=== PATIENT | male | born 1985 | race Caucasian/White ===

== ENCOUNTER 2016-07-24 13:27 | Day surgery (SDC) | payer OTHER ==
[~2016-07-24] VITALS: Ht 185.4 cm; Wt 65.4 kg
[~2016-07-24 13:27] MED LIST: NO HOME MEDS; PRED20TA PO; TRAM50TA2 PO
[2016-07-24 14:50] VITALS: Ht 185.4 cm; Wt 65.4 kg
[2016-07-24] MEDS ORDERED: PROPOFOL 40 ML ONE (15:10)
[2016-07-24] MEDS ORDERED: MIDAZOLAM 1 MG/ML 2 ML INJ ONE (15:10)
[2016-07-24 15:14] VITALS: BP 116/66; PULSE 73; RESP 20
[2016-07-24 16:09] VITALS: BP 103/70; PULSE 61; RESP 18
--- NOTE | 2016-07-25 01:01 | GILP ---
DATE OF PROCEDURE: NAME OF PROCEDURE: Colonoscopy with multiple biopsies. SURGEON: Selina Varma MD HISTORY AND INDICATIONS: The patient is being evaluated for abdominal pain; history of colitis, pos sible exacerbation. PREMEDICATION: Monitored anesthesia care by anesthesiologist. INSTRUMENT USED: Olympus colonoscope. TECHNIQUE: After informed consent, with the patient/relatives understanding the procedure, its indic ations potential risks and complications, including but not limited to: allergic reaction, bleeding, perforation, infection, missed lesions and after all pertinent questions were answered to the patie nt's satisfaction, the patient/relatives signed the witnessed informed consent. Following this, premedication was administered slowly IV push by under careful cardiovascular and re spiratory monitoring with pulse oximetry, automatic blood pressure and eyewear manufacturing supervisor. Once the sedativ e effect was achieved, the patient was placed in the left lateral decubitus position, digital rectal examination was performed. The colonoscope was then introduced and advanced under visual control th roughout all segments of the colon including: the rectum, sigmoid, descending colon, splenic flexure , transverse colon, hepatic flexure, ascending colon and finally reaching the cecum which was clearl y identified by transillumination, finger indentation and the ileocecal valve. Careful examination o f the mucosa of the lower gastrointestinal tract both on insertion as well as withdrawal of the inst rument disclosed the following findings: Rectal Examination: Small external hemorrhoids present. Colonic Mucosa: The colonic mucosa is mildly congested and erythematous in the rectum, rectosigmoid and distal descending colon. The process essentially improves beyond this point, and the right oz e of the colon appears unremarkable. The ileocecal valve was clearly identified. Terminal ileum wa s briefly examined, appears unremarkable as well. The instrument was withdrawn, re-examining the mu cosa in detail. Biopsies were obtained from the ascending, transverse, descending, sigmoid and rect al areas. Small internal hemorrhoids are present. The instrument was then withdrawn. The patient tolerated the procedure well and was transferred out of the Endoscopy Suite awake and in good condition to continue recovery under observation. IMPRESSION: 1. Mildly active left-sided ulcerative colitis, right colon endoscopically normal. 2. Small internal hemorrhoids. PLAN: Will continue Apriso. Pathology will be reviewed as soon as available. Further recommendati on will depend on the patient's clinical course as well as review of biopsies. Dictated By: SELINA VARMA MS/NTS Conf#: [id number] DID#: [id number]
== END 2016-07-24 16:32 | disposition home or self-care (01) ==
LOC: GIL 13:27
PROVIDERS: ATTEND Internal Medicine Gastroenterology
DX: K51.90 Ulcerative colitis, unspecified, without complications (principal); K64.8 Other hemorrhoids
CPT/HCPCS: 45380; 88305; J2250; Z7610

== ENCOUNTER 2018-08-08 11:30 | Inpatient (IN) | payer OTHER ==
[~2018-08-08] VITALS: Ht 185.4 cm; Wt 69.1 kg
[2018-08-08] MEDS ORDERED: SODIUM CHLORIDE 0.9% 1L BAG IV* STA (14:55)
[2018-08-08] MEDS ORDERED: morphine 4 MG/ML VIAL IV STA (14:55)
[2018-08-08] MEDS ORDERED: ONDANSETRON 4 MG INJ IV STA (14:55)
[2018-08-08] MEDS ORDERED: ACETAMINOPHEN 500 MG TAB PO STA (15:15)
[2018-08-08] MEDS ORDERED: metroNIDAZOLE 500 MG/NS (PMX) 100 ML IVPB STA (16:32)
--- NOTE | 2018-08-08 16:45 | ERD ---
ER Documentation Chief Complaint Chief Complaint back pain x3wk; UC flareup 'losing a lot of blood' HPI Patient is a 33-year-old male with a history of ulcerative colitis, who presents to the ER for concerns of worsening rectal bleeding times 3 months. Patient states initially he was having 1-2 episodes of bloody stools per day. He states that over the last few days his bloody stools have become more frequent. Patient reports having bright blood with occasional blood clot passage. Patient states he did try to call his GI doctor however he was advised to come to the ER. GI doctor is Dr. Dariela Spicer. Patient also reports lower abdominal pain. He describes his pain to be crampy and spasm-like. Patient denies any fevers at home. Patient denies any vomiting. Patient states he does take mesalamine daily. Patient also states his been having left lower back pain. Patient denies any falls or trauma. He denies any saddle anesthesia, urine incontinence or stool incontinence. Patient states he feels as if his left lower back is "spasming". Patient is able to ablate however he states it is difficult. Patient reports taking ibuprofen 800 mg 3 times per day. Patient is brought in by his . ROS All systems reviewed and are negative except as per history of present illness. Medications Home Meds Active Scripts Tramadol HCl (Tramadol HCl) 50 Mg Tablet, 50 MG PO Q4 PRN for PAIN, #20 TAB Prov:LES OSORIO 05/20/16 Prednisone* (Prednisone*) 20 Mg Tab, 40 MG PO DAILY for 5 Days, TAB Prov:LES OSORIO 05/20/16 Reported Medications [No Home Meds] No Conflict Check 01/13/15 Allergies Allergies: Coded Allergies: No Known Allergy (Unverified , 05/20/16) PMhx/Soc History of Surgery: No Anesthesia Reaction: No Hx Neurological Disorder: No Hx Respiratory Disorders: No Hx Cardiac Disorders: No Hx Psychiatric Problems: No Hx Miscellaneous Medical Probl: Yes (ULCERATIVE COLITIS) Hx Alcohol Use: No Hx Substance Use: No Hx Tobacco Use: No FmHx Family History: No diabetes Physical Exam Vitals Vital Signs Date Temp Pulse Resp B/P (MAP) Pulse Ox O2 O2 Flow FiO2 Time Delivery Rate 08/08/18 100.6 15:42 08/08/18 100.6 97 16 132/59 97 13:01 (83) Physical Exam GENERAL: Well-developed, well-nourished male. Appears uncomfortable secondary to pain. HEAD: Normocephalic, atraumatic. EYES: Pupils are equally reactive bilaterally. EOMs grossly intact. No conjunctival erythema. ENT: Moist mucous membranes. No uvula deviation. No kissing tonsils. NECK: Supple. No meningismus. Normal range of motion of the neck. LUNG: Clear to auscultation bilaterally. No rhonchi, wheezing, rales or coarse breath sounds. HEART: Regular rate and rhythm. No murmurs, rubs or gallops. ABDOMEN: Soft,and nondistended. Mildly tender to palpation in bilateral lower quadrants. Positive bowel sounds in all four quadrants. No rebound tenderness, no guarding. (-) McBurney's point tenderness. No CVA tenderness. BACK: No midline tenderness. Left lower paraspinal muscles are tender to palpation. EXTREMITIES: Equal pulses bilaterally. No peripheral clubbing, cyanosis or edema. No unilateral leg swelling. NEUROLOGIC: Alert and oriented. Moving all four extremities without any difficulty. Normal speech. Steady gait. SKIN: Normal color. Warm and dry. No rashes or lesions. Result Diagram: 08/08/18 1512 08/08/18 1512 Results 24 hrs Laboratory Tests Test 08/08/18 15:12 White Blood Count 10.5 10^3/ul Red Blood Count 4.81 10^6/ul Hemoglobin 13.1 g/dl Hematocrit 40.3 % Mean Corpuscular Volume 83.8 fl Mean Corpuscular Hemoglobin 27.2 pg Mean Corpuscular Hemoglobin Concent 32.5 g/dl Red Cell Distribution Width 12.3 % Platelet Count 445 10^3/UL Mean Platelet Volume 9.9 fl Immature Granulocytes % 0.600 % Neutrophils % 79.2 % Lymphocytes % 11.6 % Monocytes % 8.1 % Eosinophils % 0.2 % Basophils % 0.3 % Nucleated Red Blood Cells % 0.0 /100WBC Immature Granulocytes # 0.060 10^3/ul Neutrophils # 8.3 10^3/ul Lymphocytes # 1.2 10^3/ul Monocytes # 0.9 10^3/ul Eosinophils # 0.0 10^3/ul Basophils # 0.0 10^3/ul Nucleated Red Blood Cells # 0.0 10^3/ul Sodium Level 141 mmol/L Potassium Level 3.9 mmol/L Chloride Level 101 mmol/L Carbon Dioxide Level 27 mmol/L Anion Gap 13 Blood Urea Nitrogen 8 mg/dl Creatinine 0.82 mg/dl Est Glomerular Filtrat Rate mL/min > 60 mL/min Glucose Level 98 mg/dl POC Venous Lactate 2.0 mmol/L Calcium Level 9.1 mg/dl Total Bilirubin 0.2 mg/dl Direct Bilirubin 0.00 mg/dl Indirect Bilirubin 0.2 mg/dl Aspartate Amino Transf (AST/SGOT) 18 IU/L Alanine Aminotransferase (ALT/SGPT) 39 IU/L Alkaline Phosphatase 137 IU/L Troponin I < 0.012 ng/ml Total Protein 6.6 g/dl Albumin 3.7 g/dl Globulin 2.90 g/dl Albumin/Globulin Ratio 1.27 Lipase 562 U/L Current Medications Medications Dose Sig/Abril Start Time Status Last (Trade) Ordered Route PRN Stop Time Admin Dose Reason Admin Sodium 2,050 ml BOLUS OVER 2 08/08/18 DC 08/08/18 Chloride HOURS STAT 14:55 15:17 (NS) IV* 08/08/18 15:01 Ondansetron 4 mg ONCE STAT 08/08/18 DC 08/08/18 HCl (Zofran IV 14:55 15:17 Inj) 08/08/18 15:01 Morphine 4 mg ONCE STAT 08/08/18 DC 08/08/18 Sulfate IV 14:55 15:17 (morphine) 08/08/18 15:01 1,000 mg ONCE STAT 08/08/18 DC 08/08/18 Acetaminophen PO 15:15 15:42 (Tylenol 08/08/18 15:16 Tab) 100 ml @ ONCE STAT 08/08/18 DC 08/08/18 Metronidazole 100 mls/hr IVPB 16:32 18:06 08/08/18 17:31 200 ml @ ONCE ONCE 08/08/18 DC 08/08/18 Ciprofloxacin 200 mls/hr IVPB 17:00 17:05 / Dextrose 08/08/18 17:59 125 mg ONCE ONCE 08/08/18 DC 08/08/18 Methylprednis IV 19:00 18:49 olone Sodium 08/08/18 19:01 Succinate (Solu-Medrol) Ondansetron 4 mg BRIDGE ORDER 08/08/18 HCl (Zofran PRN IV 19:00 Inj) NAUSEA/VOMITI 08/09/18 18:59 NG 650 mg ER BRIDGE 08/08/18 Acetaminophen PRN PO 19:00 (Tylenol .MILD PAIN 08/09/18 18:59 Tab) 1-3 OR TEMP Procedures/MDM ED COURSE: The patient was stable throughout ED course. I kept the patient and/or family informed of laboratory and diagnostic imaging results throughout the ED course. DIAGNOSTIC IMAGING: Read by radiologist. Patient: KENNEY HENSON : 1985 Age: 33 Sex: M MR #: [id number] DOS: 08/08/18 1455 Ordering MD: GAGANDEEP LOFTON PA-C Location: [facility] Room/Bed: PROCEDURE: CT ABDOMEN AND PELVIS WITHOUT CONTRAST. CLINICAL INDICATION: Abdominal pain and bloody stool TECHNIQUE: CT scan of the abdomen and pelvis without contrast was performed on a multidetector high-resolution CT scanner. The patient was scanned without intravenous contrast. Coronal and sagittal reformatted images were obtained from the axial source images. Images were reviewed on a high-resolution PACS workstation. The total exam CTDI equals 6.7 mGy and the total exam DLP equals 401 mGy-cm. One or more of the following dose reduction techniques were used: Automated exposure control. Adjustment of the mA and/or kV according to patient size. Use of iterative reconstruction technique. DICOM images are available COMPARISON: CT 05/20/2016 FINDINGS: CT abdomen: The lung bases are clear. The heart size is within normal limits. There is no significant pericardial effusion. Hepatic morphology is within normal limits. No gross contour deforming masses. The gallbladder is within normal limits. No evidence of intrahepatic or extrahepatic biliary dilatation. The spleen and pancreas are within normal limits. Both adrenal glands are within normal limits. Both kidneys are in normal anatomic position. No evidence of obstruction or hydronephrosis. No gross renal/ureteric calculi. The visualized GI tract demonstrate normal caliber loops of small large bowel. No obstruction. Stool filled loops of large bowel suggestive of constipation. The unenhanced aorta is unremarkable. No significant retroperitoneal lymphadenopathy. CT pelvis: Bladder is distended. Prostate is normal size. Rectosigmoid colon demonstrates thickening of the melgar with mild adjacent inflammatory changes. Several perirectal lymph nodes as well as perirectal fatty stranding is noted. The visualized osseous structures, appears to be within normal limits. IMPRESSION: 1. THICKENING OF THE MELGAR OF THE RECTOSIGMOID COLON WITH PERIRECTAL FATTY STRANDING AND SEVERAL PERIRECTAL LYMPH NODES. FINDINGS MAY BE SEQUELA OF FOCAL INFECTIOUS VERSUS INFLAMMATORY COLITIS/PROCTITIS. UNDERLYING MALIGNANCY IS LESS LIKELY GIVEN CLINICAL AGE BUT NOT EXCLUDED. WOULD RECOMMEND FOLLOW-UP COLONOSCOPY. 2. No evidence of bowel obstruction. Stool filled loops of large bowel s uggestive of constipation. 3. No evidence of free fluid or free air. No gross focal fluid collections. RPTAT: AAPP Physician Kumar Date Time Electronically viewed and signed by Physician Kumar on 08/08/2018 15:57 JL/ CC: GAGANDEEP LOFTON PA-C [id number] PROCEDURES: None. MEDICATIONS GIVEN: IV fluids, Zofran, morphine Patient tolerated medication well with no adverse reactions. MEDICAL DECISION MAKING: Patient is a 33-year-old male with a past medical history of ulcerative colitis who presents the ER for concerns of worsening rectal bleeding times 3 months.. Vital signs were reviewed. Patient was febrile at initial presentation with a temperature of 100.6 Fahrenheit. Patient's notable pulse was 97 bpm. On exam, patient did appear uncomfortable. Patient noted mild diffuse lower abdominal pain and left-sided lower back pain. IV line was established. Blood work was obtained. CBC showed no elevated WBC count. Hemoglobin was noted to be 13.1, hematocrit of 40.3. Platelet count was noted to be 445. CMP showed no evidence of electrolyte abnormalities, severe acidosis, alkalosis, renal failure, or liver disease. Lipase showed no evidence of acute pancreatitis lipase was noted to be elevated at 562 however no evidence of acute pancreatitis at this time. UA is pending normal. Initial POC lactate was noted to be 2.0. Additional lactic acids are pending. Patient was given 30 cc/kg gram of IV fluids. Blood cultures were obtained and are pending. CT abdomen pelvis showed: 1. THICKENING OF THE MELGAR OF THE RECTOSIGMOID COLON WITH PERIRECTAL FATTY STRANDING AND SEVERAL PERIRECTAL LYMPH NODES. FINDINGS MAY BE SEQUELA OF FOCAL INFECTIOUS VERSUS INFLAMMATORY COLITIS/PROCTITIS. UNDERLYING MALIGNANCY IS LESS LIKELY GIVEN CLINICAL AGE BUT NOT EXCLUDED. WOULD RECOMMEND FOLLOW-UP COLONOSCOPY. 2. No evidence of bowel obstruction. Stool filled loops of large bowel suggestive of constipation. 3. No evidence of free fluid or free air. No gross focal fluid collections. Upon reexamination, patient did report some mild improvement in pain after receiving morphine. Case was discussed with supervising physician Dr. Coe. Patient will be transferred to ED 1 for further management workup of symptoms. Attending addendum: MEDICAL DECISION MAKING Patient was initially seen by the PA. Care was transferred to in after workup was done. My independent concise history is patient has been having abdominal pain with diarrhea and rectal bleeding. He denies any fevers or chills or nausea or vomiting. He does not have follow-up with his GI physician until next month. No associated chest pain or shortness of breath. My pertinent physical exam findings are lower abdominal tenderness with no rebound or guarding. The plan is to admit the patient for IV hydration, antibiotics as he does have a low-grade fever and I cannot rule out infection, as well as IV steroids. He will need GI consultation. Accepting Care Team: Current data and ongoing care discussed. Time: Time of admission Primary Provider: Dr. Kiser Departure Diagnosis: Primary Impression: Ulcerative colitis with rectal bleeding Ulcerative colitis location: unspecified ulcerative colitis location Qualified Codes: K51.911 - Ulcerative colitis, unspecified with rectal bleeding Additional Impressions: Lower back pain Chronicity: unspecified Back pain laterality: unspecified Sciatica presence: unspecified whether sciatica present Qualified Codes: M54.5 - Low back pain Fever Fever type: unspecified Qualified Codes: R50.9 - Fever, unspecified Condition: GAGANDEEP Leahy PA-C Aug 08, 2018 16:44 ROSHNI COE MD Aug 08, 2018 19:16
[2018-08-08] MEDS ORDERED: CIPROFLOXACIN 400MG/D5W 200 ML IVPB ONE (17:00)
[2018-08-08] MEDS ORDERED: ONDANSETRON 4 MG INJ IV PRN ×2 (19:00→22:00)
[2018-08-08] MEDS ORDERED: METHYLPREDNISOLONE 125 MG INJ IV ONE (19:00)
[2018-08-08] MEDS ORDERED: ACETAMINOPHEN 325 MG TAB PO PRN ×2 (19:00→22:00)
[2018-08-08 20:05] VITALS: BP 116/58; PULSE 80; RESP 17
[2018-08-08 21:00] VITALS: Ht 185.4 cm; Wt 69.1 kg
[2018-08-08] MEDS ORDERED: D5W-0.45 NACL + KCL 20 MEQ 0 ML IV ONE (21:40)
[2018-08-08] MEDS ORDERED: morphine 2 MG INJ IV PRN (22:00)
[2018-08-08] MEDS: D5-NS + KCL 20 MEQ 1,000 ML IV SCH (23:02)
[2018-08-08] MEDS: METHYLPREDNISOLONE 40 MG INJ IV SCH (23:03)
[2018-08-09] MEDS: PIPER-TAZO 3.375 GM IV (PMX) 100 ML IVPB SCH ×5 (00:15→23:15)
[2018-08-09] MEDS: METHYLPREDNISOLONE 40 MG INJ IV SCH ×3 (05:43→21:03)
[2018-08-09 08:53] VITALS: BP 109/61; PULSE 83; RESP 18
[2018-08-09] MEDS: D5-NS + KCL 20 MEQ 1,000 ML IV SCH (12:28)
[2018-08-09 15:23] VITALS: BP 100/55; PULSE 87; RESP 18
--- NOTE | 2018-08-09 17:34 | CONS ---
Assessment/Plan Assessment/Plan Assessment/Plan (Daily) Assessment: Ulcerative colitis flare Bloody diarrhea No abdominal pain Last colonoscopy 08/04 -mild left-sided colitis Patient is on a Apriso x 4 pills a day at home Lower back pain Plan: Continue Solu-Medrol 40 mg 4 times daily We will switch Solu-Medrol to p.o. prednisone tomorrow Check stool for C. difficile Start Pentasa 1000 mg 4 times daily Continue antibiotics Colonoscopy as an outpatient depending on the clinical course Patient seen in collaboration with Dr. Varma Consultation Date/Type/Reason Admit Date/Time Aug 08, 2018 at 18:43 Date of Consultation: Aug 09, 2018 Type of Consult GI Reason for Consultation Ulcerative colitis flare Date/Time of Note DATE: 08/09/18 TIME: 17:25 Hx of Present Illness This is a 33-year-old male with history of ulcerative colitis and for back pain and ulcerative colitis flare. Patient was initially diagnosed 3 years ago with colonoscopy and started on Apriso and short course of steroids. Patient had repeat colonoscopy in 2016 with findings of mildly active left-sided colitis, normal right colon. This is the patient's first flare since diagnosis. Patient reports having 4-10 bowel movements of bloody diarrhea per day for the past 3 months. Denies abdominal pain. Normally patient has 1-2 bowel movements per day. Abdominal CT shows thickening of rectosigmoid colon, fat stranding and lymphadenopathy. Patient is complaining of bloating. Currently denies nausea, vomiting, hematemesis, constipation or fever. He was seen by budget counselor and recommended paleo diet. Patient was started on antibiotics and Solu-Medrol 40 mg q. 8. Will add Pentasa 1000 mg 4 times daily. Check stool for C. difficile. Patient is tolerating diet well. Back pain is improving. Will plan to switch Solu-Medrol to oral prednisone tomorrow. Colonoscopy as an outpatient depending on the clinical course. Gastrointestinal: no complaints (See HPI) Past Medical History Medical History: no pertinent history Home Meds Active Scripts Tramadol HCl (Tramadol HCl) 50 Mg Tablet, 50 MG PO Q4 PRN for PAIN, #20 TAB Prov:LES OSORIO 05/20/16 Prednisone* (Prednisone*) 20 Mg Tab, 40 MG PO DAILY for 5 Days, TAB Prov:LES OSORIO 05/20/16 Reported Medications [No Home Meds] No Conflict Check 01/13/15 Medications Current Medications Ondansetron HCl (Zofran Inj) 4 mg BRIDGE ORDER PRN IV NAUSEA/VOMITING; Start 08/08/18 at 19:00; Stop 08/09/18 at 18:59 Acetaminophen (Tylenol Tab) 650 mg ER BRIDGE PRN PO .MILD PAIN 1-3 OR TEMP; Start 08/08/18 at 19:00; Stop 08/09/18 at 18:59 Piperacillin Sod/ Tazobactam Sod 100 ml @ 200 mls/hr Q6 IVPB Last administered on 08/09/18at 12:28; Admin Dose 200 MLS/HR; Start 08/09/18 at 00:00 Potassium Chloride/Dextrose/ Sod Cl 1,000 ml @ 75 mls/hr [id number] IV Last administered on 08/09/18at 12:28; Admin Dose 75 MLS/HR; Start 08/08/18 at 22:00 Ondansetron HCl (Zofran Inj) 4 mg Q6H PRN IV NAUSEA AND/OR VOMITING; Start 08/08/18 at 22:00 Acetaminophen (Tylenol Tab) 650 mg Q4H PRN PO MILD PAIN(1-3)OR ELEVATED TEMP; Start 08/08/18 at 22:00 Morphine Sulfate (morphine) 2 mg Q4H PRN IV SEVERE PAIN LEVEL 7-10; Start 08/08/18 at 22:00 Methylprednisolone Sodium Succinate (Solu-Medrol) 40 mg Q8 IV Last administered on 08/09/18at 14:46; Admin Dose 40 MG; Start 08/08/18 at 22:00 Influenza Virus Vaccine Quadrival (Fluzone) 0.5 ml ONCE ONCE IM* ; Start 08/10/18 at 10:00; Stop 08/10/18 at 10:01 Allergies: Coded Allergies: No Known Allergy (Unverified , 05/20/16) Past Surgical History Past Surgical Hx: no surgical history Social History Alcohol Use: none Smoking Status: Never smoker Drug Use: none Exam/Review of Systems Exam Vitals Vital Signs Date Temp Pulse Resp B/P (MAP) Pulse Ox O2 O2 Flow FiO2 Time Delivery Rate 08/09/18 98.1 87 18 100/55 97 15:23 (70) 08/08/18 Room Air 19:58 Intake and Output 08/08/18 08/08/18 08/09/18 1515:00 23:00 07:00 IntakeIntake Total 2250 ml BalanceBalance 2250 ml Exam PHYSICAL EXAMINATION: GENERAL: Well developed, well nourished, alert & oriented x 3, in no acute distress SKIN: No lesions, no stigmata chronic liver disease, no evidence of bleeding diathesis LYMPHATIC: No palpable lymphadenopathy. HEAD: Normocephalic, atraumatic, no tenderness. EYES: Pupils equal reactive to light and accommodation, full extraocular movements, sclera clear, non-icteric, no discharge. EARS/NOSE AND THROAT: Ears normal, nose normal, oropharynx normal, oral membranes well hydrated without lesions. NECK: Supple, no masses, thyroid normal, JVP within normal limits, carotids normal without bruits. CHEST: Inspection within normal limits. CARDIOVASCULAR: Heart: Regular rate and rhythm, no murmurs, gallops or rubs. Peripheral pulses present within normal limits, no cyanosis, clubbing or edemas. No pulsatile abdominal mass RESPIRATORY: Lungs clear to auscultation and percussion, no wheezing, no rubs GASTROINTESTINAL AND LIVER: Abdomen: Soft, non tenderness, non-distended, no hernias, no masses, no organomegaly, no ascites, no guarding, no rebound tenderness, normoactive bowel sounds. Rectal: Deferred. GENITOURINARY: [Male genitalia within normal limits. EXTREMITIES: No cyanosis, clubbing or edema. Results Result Diagram: 08/09/184 08/09/184 Results 24hrs Laboratory Tests Test 08/08/18 22:16 08/09/18 04:44 08/09/18 07:42 Lactic Acid Level 0.9 White Blood Count 6.0 # Red Blood Count 4.50 L Hemoglobin 12.3 L Hematocrit 38.0 L Mean Corpuscular Volume 84.4 Mean Corpuscular Hemoglobin 27.3 L Mean Corpuscular Hemoglobin Concent 32.4 Red Cell Distribution Width 12.1 Platelet Count 380 Mean Platelet Volume 10.4 Immature Granulocytes % 0.700 H Neutrophils % 89.0 H Lymphocytes % 9.3 L Monocytes % 1.0 Eosinophils % 0.0 Basophils % 0.0 Nucleated Red Blood Cells % 0.0 Immature Granulocytes # 0.040 H Neutrophils # 5.4 Lymphocytes # 0.6 L Monocytes # 0.1 L Eosinophils # 0.0 Basophils # 0.0 Nucleated Red Blood Cells # 0.0 Sodium Level 139 Potassium Level 4.4 Chloride Level 106 Carbon Dioxide Level 28 Anion Gap 5 # Blood Urea Nitrogen 8 Creatinine 0.73 Est Glomerular Filtrat Rate mL/min > 60 Glucose Level 147 # Calcium Level 8.9 Bedside Glucose 129 Medications Medication Current Medications Ondansetron HCl (Zofran Inj) 4 mg BRIDGE ORDER PRN IV NAUSEA/VOMITING; Start at 19:00; Stop 08/09/18 at 18:59 Acetaminophen (Tylenol Tab) 650 mg ER BRIDGE PRN PO .MILD PAIN 1-3 OR TEMP; Start 08/08/18 at 19:00; Stop 08/09/18 at 18:59 Piperacillin Sod/ Tazobactam Sod 100 ml @ 200 mls/hr Q6 IVPB Last administered on 08/09/18at 12:28; Admin Dose 200 MLS/HR; Start 08/09/18 at 00:00 Potassium Chloride/Dextrose/ Sod Cl 1,000 ml @ 75 mls/hr [id number] IV Last administered on 08/09/18at 12:28; Admin Dose 75 MLS/HR; Start 08/08/18 at 22:00 Ondansetron HCl (Zofran Inj) 4 mg Q6H PRN IV NAUSEA AND/OR VOMITING; Start 08/08/18 at 22:00 Acetaminophen (Tylenol Tab) 650 mg Q4H PRN PO MILD PAIN(1-3)OR ELEVATED TEMP; Start 08/08/18 at 22:00 Morphine Sulfate (morphine) 2 mg Q4H PRN IV SEVERE PAIN LEVEL 7-10; Start 08/08/18 at 22:00 Methylprednisolone Sodium Succinate (Solu-Medrol) 40 mg Q8 IV Last administered on 08/09/18at 14:46; Admin Dose 40 MG; Start 08/08/18 at 22:00 Influenza Virus Vaccine Quadrival (Fluzone) 0.5 ml ONCE ONCE IM* ; Start 08/10/18 at 10:00; Stop 08/10/18 at 10:01 KEVIN BARAKAT NP Aug 09, 2018 17:34
[2018-08-09] MEDS: MESALAMINE (SR) 250 MG CAP PO SCH ×2 (18:53→21:03)
[2018-08-09 20:00] VITALS: BP 105/56; PULSE 80; RESP 18
[2018-08-10 02:00] VITALS: BP 92/48; PULSE 83; RESP 17
[2018-08-10 04:11] VITALS: BP 111/58; PULSE 75
[2018-08-10] MEDS: METHYLPREDNISOLONE 40 MG INJ IV SCH (05:41)
[2018-08-10] MEDS: D5-NS + KCL 20 MEQ 1,000 ML IV SCH ×2 (05:41→13:37)
[2018-08-10] MEDS: PIPER-TAZO 3.375 GM IV (PMX) 100 ML IVPB SCH ×3 (05:41→17:28)
[2018-08-10 08:00] VITALS: BP 107/57; PULSE 73; RESP 18
[2018-08-10] MEDS: MESALAMINE (SR) 250 MG CAP PO SCH ×3 (09:21→17:28)
--- NOTE | 2018-08-10 10:18 | PN ---
Date/Time of Note Date/Time of Note DATE: 08/10/18 TIME: 10:03 Assessment/Plan VTE Prophylaxis Risk score (from Ns)>0 risk: 0 SCD applied (from Ns): Yes Pharmacological prophylaxis: NA/contraindicated Pharm contraindication: bleeding Lines/Catheters IV Catheter Type (from [facility] Peripheral IV Urinary Cath still in place: No Assessment/Plan Assessment/Plan Assessment: Ulcerative colitis flare Bloody diarrhea No abdominal pain Last colonoscopy 08/04 -mild left-sided colitis Patient is on a Apriso x 4 pills a day at home Lower back pain Plan: Protonix daily while on prednisone We will switch Solu-Medrol to p.o. prednisone 30 mg p.o. twice daily - taper by 5 mg every 3 days Stool for C. difficile -pending Pentasa 1000 mg 4 times daily -once discharged can continue on Apriso F/u as an OP Colonoscopy as an outpatient depending on the clinical course Patient seen in collaboration with Dr. Varma Subjective: Patient is doing well. Diarrhea improved. Patient reports 5 bowel movements yesterday and one bowel movement today. Patient reports minimal amount of blood in stool. Denies abdominal pain. Tolerates diet well. Stool for C. difficile is still pending. We will switch Solu-Medrol to prednisone 30 mg twice daily. Taper prednisone by 5 mg every 3 days. Continue on Apriso. Follow-up as an outpatient. PHYSICAL EXAMINATION: GENERAL: Well developed, well nourished, alert & oriented x 3, in no acute distress SKIN: No lesions, no stigmata chronic liver disease, no evidence of bleeding diathesis LYMPHATIC: No palpable lymphadenopathy. HEAD: Normocephalic, atraumatic, no tenderness. EYES: Pupils equal reactive to light and accommodation, full extraocular movements, sclera clear, non-icteric, no discharge. EARS/NOSE AND THROAT: Ears normal, nose normal, oropharynx normal, oral membranes well hydrated without lesions. NECK: Supple, no masses, thyroid normal, JVP within normal limits, carotids normal without bruits. CHEST: Inspection within normal limits. CARDIOVASCULAR: Heart: Regular rate and rhythm, no murmurs, gallops or rubs. Per ipheral pulses present within normal limits, no cyanosis, clubbing or edemas. No pulsatile abdominal mass RESPIRATORY: Lungs clear to auscultation and percussion, no wheezing, no rubs GASTROINTESTINAL AND LIVER: Abdomen: Soft, non tenderness, non-distended, no hernias, no masses, no organomegaly, no ascites, no guarding, no rebound tenderness, normoactive bowel sounds. Rectal: Deferred. GENITOURINARY: [Male genitalia within normal limits. EXTREMITIES: No cyanosis, clubbing or edema. Result Diagram: 08/10/18 0437 08/10/18 0437 Results 24hrs Laboratory Tests Test 08/09/18 22:00 08/10/18 04:37 Stool Occult Blood NEGATIVE White Blood Count 12.7 #H Red Blood Count 4.03 L Hemoglobin 11.0 L Hematocrit 33.9 L Mean Corpuscular Volume 84.1 Mean Corpuscular Hemoglobin 27.3 L Mean Corpuscular Hemoglobin Concent 32.4 Red Cell Distribution Width 12.0 Platelet Count 360 Mean Platelet Volume 10.8 H Immature Granulocytes % 0.900 H Neutrophils % 84.3 H Lymphocytes % 8.7 L Monocytes % 5.8 Eosinophils % 0.1 Basophils % 0.2 Nucleated Red Blood Cells % 0.0 Immature Granulocytes # 0.110 H Neutrophils # 10.7 H Lymphocytes # 1.1 Monocytes # 0.7 Eosinophils # 0.0 Basophils # 0.0 Nucleated Red Blood Cells # 0.0 Sodium Level 138 Potassium Level 4.5 Chloride Level 107 Carbon Dioxide Level 27 Anion Gap 4 L Blood Urea Nitrogen 9 Creatinine 0.77 Est Glomerular Filtrat Rate mL/min > 60 Glucose Level 141 Calcium Level 8.8 CC: SELINA VARMA MD ; Exam/Review of Systems Exam Vitals Vital Signs Date Temp Pulse Resp B/P (MAP) Pulse Ox O2 O2 Flow FiO2 Time Delivery Rate 08/10/18 97.8 73 18 107/57 99 Room Air 08:00 (74) Intake and Output 08/09/18 08/09/18 08/10/18 1515:00 23:00 07:00 IntakeIntake Total 1580 ml 620 ml 1200 ml OutputOutput Total 1 ml BalanceBalance 1579 ml 620 ml 1200 ml Results Results 24hrs Laboratory Tests Test 08/09/18 22:00 08/10/18 04:37 Stool Occult Blood NEGATIVE White Blood Count 12.7 #H Red Blood Count 4.03 L Hemoglobin 11.0 L Hematocrit 33.9 L Mean Corpuscular Volume 84.1 Mean Corpuscular Hemoglobin 27.3 L Mean Corpuscular Hemoglobin Concent 32.4 Red Cell Distribution Width 12.0 Platelet Count 360 Mean Platelet Volume 10.8 H Immature Granulocytes % 0.900 H Neutrophils % 84.3 H Lymphocytes % 8.7 L Monocytes % 5.8 Eosinophils % 0.1 Basophils % 0.2 Nucleated Red Blood Cells % 0.0 Immature Granulocytes # 0.110 H Neutrophils # 10.7 H Lymphocytes # 1.1 Monocytes # 0.7 Eosinophils # 0.0 Basophils # 0.0 Nucleated Red Blood Cells # 0.0 Sodium Level 138 Potassium Level 4.5 Chloride Level 107 Carbon Dioxide Level 27 Anion Gap 4 L Blood Urea Nitrogen 9 Creatinine 0.77 Est Glomerular Filtrat Rate mL/min > 60 Glucose Level 141 Calcium Level 8.8 Medications Medication Current Medications Piperacillin Sod/ Tazobactam Sod 100 ml @ 200 mls/hr Q6 IVPB Last administered on 08/10/18 05:41; Admin Dose 200 MLS/HR; Start 08/09/18 at 00:00 Potassium Chloride/Dextrose/ Sod Cl 1,000 ml @ 75 mls/hr [id number] IV Last administered on 08/10/18at 05:41; Admin Dose 75 MLS/HR; Start 08/08/18 at 22:00 Ondansetron HCl (Zofran Inj) 4 mg Q6H PRN IV NAUSEA AND/OR VOMITING; Start 08/08/18 at 22:00 Acetaminophen (Tylenol Tab) 650 mg Q4H PRN PO MILD PAIN(1-3)OR ELEVATED TEMP; Start 08/08/18 at 22:00 Morphine Sulfate (morphine) 2 mg Q4H PRN IV SEVERE PAIN LEVEL 7-10; Start 08/08/18 at 22:00 Methylprednisolone Sodium Succinate (Solu-Medrol) 40 mg Q8 IV Last administered on 08/10/18at 05:41; Admin Dose 40 MG; Start 08/08/18 at 22:00 Mesalamine (Pentasa) 1,000 mg QID PO Last administered on 08/10/18at 09:21; Admin Dose 1,000 MG; Start 08/09/18 at 17:30 KEVIN BARAKAT NP Aug 10, 2018 10:14
[2018-08-10] MEDS ORDERED: predniSONE 10 MG TAB PO SCH (10:30)
--- NOTE | 2018-08-10 12:32 | DS ---
Date/Time of Note Date/Time of Note DATE: 08/10/18 TIME: 12:31 Discharge Summary Admission/Discharge Info Admit Date/Time Aug 08, 2018 at 18:43 Discharge Date/Time 08/10/18 Discharge Diagnosis -Ulcerative colitis with rectal bleeding - Admit to unit -Gi consult- Dr Abbott - monitor CBC -Lower back pain -Fever Patient Condition: Fair Consults GI Procedures none Hx of Present Illness Patient with ulcerative colitis comes in with rectal bleeding. Hospital Course Patient was seen by GI and started on steroids. Patient's condition improved and was felt to be stable for discharge Home Meds Active Scripts Tramadol HCl (Tramadol HCl) 50 Mg Tablet, 50 MG PO Q4 PRN for PAIN, #20 TAB Prov:LES OSORIO 05/20/16 Prednisone* (Prednisone*) 20 Mg Tab, 40 MG PO DAILY for 5 Days, TAB Prov:LES OSORIO 05/20/16 Reported Medications [No Home Meds] No Conflict Check 01/13/15 Primary Care Provider Quirino Sherwood DO Pending Labs Laboratory Tests Test 08/09/18 22:00 08/10/18 04:37 Stool Occult Blood NEGATIVE (NEGATIVE) White Blood Count 12.7 10^3/ul (4.8-10.8) Red Blood Count 4.03 10^6/ul (4.70-6.10) Hemoglobin 11.0 g/dl (14.0-18.0) Hematocrit 33.9 % (42.0-52.0) Mean Corpuscular Volume 84.1 fl (82.0-101.0) Mean Corpuscular Hemoglobin 27.3 pg (29.0-33.0) Mean Corpuscular 32.4 g/dl (32.0-37.0) Hemoglobin Concent Red Cell Distribution Width 12.0 % (11.5-14.5) Platelet Count 360 10^3/UL (140-415) Mean Platelet Volume 10.8 fl (7.4-10.4) Immature Granulocytes % 0.900 % (0.001-0.429) Neutrophils % 84.3 % (39.0-77.0) Lymphocytes % 8.7 % (15.0-51.0) Monocytes % 5.8 % (0.0-11.0) Eosinophils % 0.1 % (0.0-7.0) Basophils % 0.2 % (0.0-2.0) Nucleated Red Blood Cells % 0.0 /100WBC (0.0-0.0) Immature Granulocytes # 0.110 10^3/ul (0.0-0.031) Neutrophils # 10.7 10^3/ul (1.6-7.5) Lymphocytes # 1.1 10^3/ul (0.8-2.9) Monocytes # 0.7 10^3/ul (0.3-0.9) Eosinophils # 0.0 10^3/ul (0.0-0.5) Basophils # 0.0 10^3/ul (0.0-0.1) Nucleated Red Blood Cells # 0.0 10^3/ul (0.0-0.0) Sodium Level 138 mmol/L (135-144) Potassium Level 4.5 mmol/L (3.5-5.1) Chloride Level 107 mmol/L (97-110) Carbon Dioxide Level 27 mmol/L (21-31) Anion Gap 4 (5-13) Blood Urea Nitrogen 9 mg/dl (7-20) Creatinine 0.77 mg/dl (0.61-1.24) Est Glomerular Filtrat > 60 mL/min (>60) Rate mL/min Glucose Level 141 mg/dl (70-220) Calcium Level 8.8 mg/dl (8.4-10.2) Microbiology Date/Time Source Procedure Growth Status 08/09/18 22:00 Feces Clostridium difficile Toxin Assay - Final Complete YOSELIN VAN Aug 10, 2018 12:32
[2018-08-10 14:56] VITALS: BP 103/55; PULSE 75; RESP 18
[2018-08-11] MEDS ORDERED: PANTOPRAZOLE (EC) 40 MG TAB PO SCH (06:00)
== END 2018-08-10 18:43 | disposition home or self-care (01) | DRG 387 ==
LOC: FTE 11:30 → PP2 18:43
PROVIDERS: ADMIT Internal Medicine; ATTEND Internal Medicine
DX: K51.511 Left sided colitis with rectal bleeding (principal)
CPT/HCPCS: 36415; 72100; 74176; 80048; 80053; 82270; 82962; 83605; 83690; 84484; 85025; 86850; 86900; 86901; 87040; 87075; 90686; 96361; 96365; 96375; J0744; J2270; J2405; J2543; J2920; J2930; J3480; J7030; J7512

== ENCOUNTER 2018-09-25 21:20 | Emergency (ER) | payer OTHER ==
[~2018-09-25] VITALS: Ht 180.3 cm; Wt 63.3 kg
[2018-09-25 21:30] VITALS: Ht 180.3 cm; Wt 63.3 kg
--- NOTE | 2018-09-26 02:41 | ERD ---
ER Documentation Chief Complaint Chief Complaint abd pain and fever ; hx of ulcerative colitis HPI The patient is a 33-year-old male, presenting to the ER because of diarrhea intermittently for the last month, sometimes bloody stool. He had similar symptoms previously from exacerbation of ulcerative colitis, denies abdominal pain, vomiting, chest pain, dyspnea, dysuria. He does not smoke nor drink Past medical history: Ulcerative colitis Past surgical history: He had EGD on August 04, 2018 that showed mild left colitis ROS All systems reviewed and are negative except as per history of present illness. Medications Home Meds Active Scripts Metronidazole* (Flagyl*) 500 Mg Tablet, 500 MG PO TID for 10 Days, TAB Prov:JULIANNA AMBROSE MD 09/26/18 Levofloxacin* (Levaquin*) 750 Mg Tablet, 750 MG PO DAILY for 10 Days, TAB Prov:JULIANNA AMBROSE MD 09/26/18 Tramadol HCl (Tramadol HCl) 50 Mg Tablet, 50 MG PO Q4 PRN for PAIN, #20 TAB Prov:LES OSORIO 05/20/16 Prednisone* (Prednisone*) 20 Mg Tab, 40 MG PO DAILY for 5 Days, TAB Prov:JOLES C 05/20/16 Reported Medications [No Home Meds] No Conflict Check 01/13/15 Allergies Allergies: Coded Allergies: No Known Allergy (Unverified , 05/20/16) PMhx/Soc History of Surgery: No Anesthesia Reaction: No Hx Neurological Disorder: No Hx Respiratory Disorders: No Hx Cardiac Disorders: No Hx Psychiatric Problems: No Hx Miscellaneous Medical Probl: No Hx Alcohol Use: No Hx Substance Use: No Hx Tobacco Use: No Physical Exam Vitals Vital Signs Date Temp Pulse Resp B/P (MAP) Pulse Ox O2 O2 Flow FiO2 Time Delivery Rate 09/25/18 100.2 94 18 123/69 98 21:30 (87) Physical Exam Const: No acute distress. Head: Atraumatic. Eyes: Normal Conjunctiva. ENT: Normal External Ears, Nose and Mouth. Neck: Full range of motion. No meningismus. Resp: Clear to auscultation bilaterally. Cardio: Regular rate and rhythm. Abd: Soft, non distended, normal bowel sounds, non tender. Skin: No petechiae or rashes. Back: No midline or flank tenderness. Ext: No cyanosis, or edema. Neur: Awake and alert. No focal deficit Psych: Normal Mood and Affect. Result Diagram: 09/26/1831109/26/18 0312 Results 24 hrs Laboratory Tests Test 09/26/18 03:12 09/26/18 03:29 White Blood Count 11.0 10^3/ul Red Blood Count 4.68 10^6/ul Hemoglobin 12.3 g/dl Hematocrit 38.7 % Mean Corpuscular Volume 82.7 fl Mean Corpuscular Hemoglobin 26.3 pg Mean Corpuscular Hemoglobin Concent 31.8 g/dl Red Cell Distribution Width 13.2 % Platelet Count 310 10^3/UL Mean Platelet Volume 10.1 fl Immature Granulocytes % 0.500 % Neutrophils % 73.4 % Lymphocytes % 17.3 % Monocytes % 7.8 % Eosinophils % 0.7 % Basophils % 0.3 % Nucleated Red Blood Cells % 0.0 /100WBC Immature Granulocytes # 0.060 10^3/ul Neutrophils # 8.1 10^3/ul Lymphocytes # 1.9 10^3/ul Monocytes # 0.9 10^3/ul Eosinophils # 0.1 10^3/ul Basophils # 0.0 10^3/ul Nucleated Red Blood Cells # 0.0 10^3/ul Sodium Level 140 mmol/L Potassium Level 3.9 mmol/L Chloride Level 105 mmol/L Carbon Dioxide Level 28 mmol/L Anion Gap 7 Blood Urea Nitrogen 7 mg/dl Creatinine 0.90 mg/dl Est Glomerular Filtrat Rate mL/min > 60 mL/min Glucose Level 98 mg/dl Calcium Level 8.9 mg/dl Total Bilirubin 0.5 mg/dl Direct Bilirubin 0.00 mg/dl Indirect Bilirubin 0.5 mg/dl Aspartate Amino Transf (AST/SGOT) 14 IU/L Alanine Aminotransferase (ALT/SGPT) 25 IU/L Alkaline Phosphatase 103 IU/L Total Protein 6.7 g/dl Albumin 3.5 g/dl Globulin 3.20 g/dl Albumin/Globulin Ratio 1.09 Lipase 66 U/L Bedside Urine pH (LAB) 6.0 Bedside Urine Protein (LAB) Trace Bedside Urine Glucose (UA) Negative Bedside Urine Ketones (LAB) Negative Bedside Urine Blood Negative Bedside Urine Nitrite (LAB) Negative Bedside Urine Leukocyte Esterase (L Negative Procedures/MDM MEDICAL MAKING DECISION: The patient is a 33-year-old male, presenting with my exacerbation of acute ulcerative colitis, is stable for outpatient follow-up The differential diagnoses considered include but are not limited to cholelithiasis, cholecystitis, choledocholithiasis, cholangitis, pancreatitis, hepatitis, gastritis, peptic ulcer disease, gastric ulcer, appendicitis, cystitis, diverticulitis, partial small bowel obstruction. Departure Diagnosis: Primary Impression: Ulcerative colitis, acute Additional Impression: Anemia Condition: Stable Comments He was discharged with Levaquin and Flagyl, he declined prednisone I discussed the findings with the patient. I advised the patient to follow-up with the primary physician in about 2-3 days, sooner if needed and return if any concern. Disclaimer: Inadvertent spelling and grammatical errors are likely due to EHR/dictation software use and do not reflect on the overall quality of patient care. Also, please note that the electronic time recorded on this note does not necessarily reflect the actual time of the patient encounter. JULIANNA AMBROSE MD Sep 26, 2018 02:41
[2018-09-26] MEDS ORDERED: LEVO750T25 PO (04:52)
[2018-09-26] MEDS ORDERED: METR500T PO (04:52)
[2018-09-26 05:18] VITALS: BP 111/74; PULSE 86; RESP 19
== END 2018-09-26 05:19 | disposition home or self-care (01) ==
LOC: E/R 21:20
DX: K51.90 Ulcerative colitis, unspecified, without complications (principal); D64.9 Anemia, unspecified
CPT/HCPCS: 36415; 80053; 81003; 83690; 85025; Z7502; 99283